=== PATIENT | female | born 1995 | race Caucasian/White ===

== ENCOUNTER 2018-07-19 18:20 | Emergency (ER) | payer SELFPAY, OTHER ==
[2018-07-19] MEDS: TRIMETHOPRIM/SULFAMETHOX (DS) TAB PO (21:40)
[2018-07-19] MEDS: CEFTRIAXONE 1 GM INJ IM (21:40)
[2018-07-19] MEDS: IBUPROFEN 600 MG TAB PO (21:41)
[2018-07-19] MEDS: LIDOCAINE 1% (MDV) 20 ML INJ SC (21:42)
== END 2018-07-19 22:27 | disposition home or self-care (01) ==
LOC: FTE 18:20
DX: L03.114 Cellulitis of left upper limb (principal); W57.XXXA Bitten or stung by nonvenomous insect and other nonvenomous arthropods, initial encounter; Y92.9 Unspecified place or not applicable
CPT/HCPCS: 96372; 99284-25